=== PATIENT | male | born 1995 | race Caucasian/White ===

== ENCOUNTER 2021-10-09 08:19 | Emergency (ER) | payer SELFPAY ==
[2021-10-09 08:40] VITALS: BP 135/86; PULSE 80; TEMP 98.4; BMI 27.6
[2021-10-09] MEDS ORDERED: ONDANSETRON 4 MG/2 ML VIAL IVPUSH ONE (09:05)
[2021-10-09] MEDS ORDERED: SODIUM CHLORIDE 0.9% 500 ML INFUS.BAG IV ONE (09:05)
[2021-10-09] MEDS ORDERED: FAMOTIDINE 20 MG/50 ML IVPB 20 MG/50 ML MG IVPB ONE (09:05)
[2021-10-09] MEDS ORDERED: ONDANSETRON 4 MG/2 ML VIAL ONE (09:28)
[2021-10-09] MEDS ORDERED: FAMOTIDINE 10 MG/ML VIAL IVPB ONE (09:29)
[2021-10-09 09:56] LABS: URINE APPEARANCE CLEAR; URINE BILIRUBIN NEGATIVE (NEGATIVE); URINE COLOR YELLOW; URINE GLUCOSE (UA) NEGATIVE (NEGATIVE); URINE KETONE NEGATIVE (NEGATIVE); URINE LEUK ESTERASE NEGATIVE (NEGATIVE); URINE NITRITE NEGATIVE (NEGATIVE); URINE PROTEIN NEGATIVE (NEGATIVE); URINE UROBILINOGEN 0.2 mg/dL (0.2-1.0)
[2021-10-09 10:18] LABS: BASO % 0.6 % (0-2.0); EOS % 3.6 % (0-4.5); HEMOGLOBIN 15.6 GM/dL (11.7-16.9); LYMPH % 24.3 % (8-40); MCH 28.8 pg (25.7-33.7); MCHC 34.7 g/dl (32.0-35.9); MEAN CELL VOLUME 83.1 fl (80-96); MEAN PLT VOLUME 8.4 fl (7.5-11.1); MONO % 7.8 % (3.8-10.2); NEUT % 63.7 % (42.8-82.8); PLATELET COUNT 254 10^3/uL (134-434); RBC 5.42 M/mm3 (4.00-5.60); RDW 13.4 % (11.9-15.9)
[2021-10-09 10:38] LABS: ALBUMIN 3.9 g/dl (3.4-5.0); BLOOD UREA NITROGEN 14.8 mg/dL (7-18); CALCIUM 9.2 mg/dL (8.5-10.1)
[2021-10-09 10:43] LABS: BILIRUBIN,TOTAL 0.9 mg/dL (0.2-1); CREATININE 0.7 mg/dL (0.55-1.3)
== END 2021-10-09 13:35 | disposition home or self-care (01) ==
LOC: JER 08:19
PROC: 3E033GC Introduction of Other Therapeutic Substance into Peripheral Vein, Percutaneous Approach (ICD-10-PCS; principal; 2021-10-09)
DX: R11.10 Vomiting, unspecified (principal); R10.84 Generalized abdominal pain; R94.5 Abnormal results of liver function studies
CPT/HCPCS: 36415; 76705-TC; 80053; 81003; 83690; 85025; 87086; 99284-25

== ENCOUNTER 2024-03-10 01:01 | Emergency (ER) | payer SELFPAY ==
[2024-03-10 01:22] VITALS: BP 119/94; PULSE 73; RESP 18; TEMP 98.1; BMI 28.3
== END 2024-03-10 01:40 | disposition home or self-care (01) ==
LOC: JER 01:01
DX: H92.02 Otalgia, left ear (principal)
CPT/HCPCS: 99282-25